=== PATIENT | female | born 1950 | race American Indian/Alaskan Native ===

== ENCOUNTER 2017-10-08 09:19 | Emergency (ER) | payer OTHER ==
[2017-10-08 09:26] VITALS: BP 139/74; PULSE 85; RESP 20; TEMP 97.4; O2SAT 98; BMI 35.4
--- NOTE | 2017-10-08 09:46 | ED PDOC ---
Lower Extremity Pain/Injury Time Seen by Provider: 10/08/17 09:25 Chief Complaint (Nursing): Lower Extremity Problem/Injury Chief Complaint (Provider): Right knee pain History Per: Patient History/Exam Limitations: no limitations Onset/Duration Of Symptoms: Days (10/08/17) Current Symptoms Are (Timing): Still Present Additional Complaint(s): 66 year old female with no past medical history presents to the ED complaining of right knee pain onset today morning. Reports while going to [employer], she tripped and fell. Denies head injury, loss of consciousness, dizziness, or any other injury in ED. PMD: No Family Provider - Knee Description Of Injury: Fell Past Medical History Reviewed: Historical Data, Nursing Documentation, Vital Signs Vital Signs: Last Vital Signs Temp 97.4 F L 10/08/17 09:25 Pulse 85 10/08/17 09:25 Resp 20 10/08/17 09:25 BP 139/74 10/08/17 09:25 Pulse Ox 98 10/08/17 09:25 - Medical History PMH: No Chronic Diseases - Family History Family History: States: Unknown Family Hx - Immunization History Hx Tetanus Toxoid Vaccination: No Hx Influenza Vaccination: No Hx Pneumococcal Vaccination: No - Home Medications Home Medications: Ambulatory Orders Medication Instructions Recorded Prednisone [Deltasone] 20 mg PO DAILY #3 tablet 05/15/17 traMADol [Ultram] 50 mg PO TID #7 tab 05/15/17 Naproxen [Naprosyn] 500 mg PO Q12H #20 tab 10/08/17 - Allergies Allergies/Adverse Reactions: Allergies Allergy/AdvReac Type Severity Reaction Status Date / Time No Known Allergies Allergy Verified 10/08/17 09:23 Review of Systems ROS Statement: Except As Marked, All Systems Reviewed And Found Negative Musculoskeletal: Positive for: Other (right knee pain) Neurological: Negative for: Dizziness, Other (head injury; LOC) Physical Exam - Reviewed Nursing Documentation Reviewed: Yes Vital Signs Reviewed: Yes - Physical Exam Appears: Positive for: Non-toxic, No Acute Distress Head Exam: Positive for: ATRAUMATIC, NORMAL INSPECTION, NORMOCEPHALIC Skin: Positive for: Normal Color, Warm, Dry Extremity: Positive for: Normal ROM (full ROM; normal patellar), Other (old abrasion). Negative for: Tenderness, Swelling Neurologic/Psych: Positive for: Alert (awake), Oriented (x3). Negative for: Motor/Sensory Deficits - ECG O2 Sat by Pulse Oximetry: 98 (RA) Pulse Ox Interpretation: Normal Medical Decision Making Medical Decision Making: Time: 938 Initial Plan: --Knee 3 views RT [RAD] --Reevaluation Scribe Attestation: Documented by Loretta Bains, acting as a scribe for Tay Carlson MD Provider Scribe Attestation: All medical record entries made by the Scribe were at my direction and personally dictated by me. I have reviewed the chart and agree that the record accurately reflects my personal performance of the history, physical exam, medical decision making, and the department course for this patient. I have also personally directed, reviewed, and agree with the discharge instructions and disposition. Disposition - Clinical Impression Clinical Impression: Knee sprain - Patient ED Disposition Is Patient to be Admitted: No Counseled Patient/Family Regarding: Studies Performed, Diagnosis, Need For Followup, Rx Given - Disposition Referrals: [facility] [Outside] Disposition: Routine/Home Disposition Time: 10:00 Condition: FAIR Prescriptions: Naproxen [Naprosyn] 500 mg PO Q12H #20 tab Instructions: Knee Sprain (DC) Forms: [employer] ([place])
--- NOTE | 2017-10-09 19:52 | RAD ---
PROCEDURE: Right Knee Radiographs. HISTORY: trauma COMPARISON: None. FINDINGS: BONES: Bone alignment is normal. No acute displaced fracture.There is diffuse bone demineralization. JOINTS: There is mild tricompartmental degenerative osteoarthrosis, worse in the medial compartment with reduced joint spaces, marginal osteophytes and tibial spiking. JOINT EFFUSION: There is a small suprapatellar joint effusion. OTHER FINDINGS: None. IMPRESSION: No acute fracture or dislocation. Mild tricompartmental degenerative osteoarthrosis, worse in the medial compartment.
== END 2017-10-08 10:15 | disposition home or self-care (01) ==
LOC: H.ER 09:19
DX: S83.91XA Sprain of unspecified site of right knee, initial encounter (principal); W19.XXXA Unspecified fall, initial encounter

== ENCOUNTER 2017-11-07 10:24 | Emergency (ER) | payer OTHER ==
[2017-11-07 10:24] VITALS: BMI 35.4
[2017-11-07 10:31] VITALS: RESP 20; TEMP 97.5
--- NOTE | 2017-11-07 11:34 | ED PDOC ---
HPI: General Adult Time Seen by Provider: 11/07/17 10:43 Chief Complaint (Nursing): Abnormal Skin Integrity Chief Complaint (Provider): headache History Per: Patient History/Exam Limitations: no limitations Onset/Duration Of Symptoms: Days (x1 week) Current Symptoms Are (Timing): Still Present Recently: Seen In ED Additional Complaint(s): Leatha Laguna is a 66 year old female, with no significant past medical history, who presents to the emergency department complaining of headache and feeling itchy all over her body onset for x1 week. Patient reports she was recently seen at [facility] and given Caldyphen but with no relief. Patient is non domicile and is currently staying at the longterm. She denies any fever, chills or other medical complaints. PMD: None provided. Past Medical History Reviewed: Historical Data, Nursing Documentation, Vital Signs Vital Signs: Last Vital Signs Temp 97.5 F L 11/07/17 10:31 Pulse 110 H 11/07/17 10:31 Resp 20 11/07/17 10:31 BP 104/60 11/07/17 10:31 Pulse Ox 96 11/07/17 11:41 - Medical History PMH: No Chronic Diseases - Surgical History Surgical History: No Surg Hx - Family History Family History: States: Unknown Family Hx - Immunization History Hx Tetanus Toxoid Vaccination: No Hx Influenza Vaccination: No Hx Pneumococcal Vaccination: No - Home Medications Home Medications: Ambulatory Orders Medication Instructions Recorded Prednisone [Deltasone] 20 mg PO DAILY #3 tablet 05/15/17 traMADol [Ultram] 50 mg PO TID #7 tab 05/15/17 Naproxen [Naprosyn] 500 mg PO Q12H #20 tab 10/08/17 Ibuprofen [Motrin] 600 mg PO Q6H PRN #20 tab 11/07/17 Permethrin [Elimite] 60 gm TP DAILY #1 cream..g. 11/07/17 - Allergies Allergies/Adverse Reactions: Allergies Allergy/AdvReac Type Severity Reaction Status Date / Time No Known Allergies Allergy Verified 10/08/17 09:23 Review of Systems ROS Statement: Except As Marked, All Systems Reviewed And Found Negative Constitutional: Negative for: Fever, Chills Skin: Positive for: Other (itchiness all over body) Neurological: Positive for: Headache Physical Exam - Reviewed Nursing Documentation Reviewed: Yes Vital Signs Reviewed: Yes - Physical Exam Appears: Positive for: Non-toxic, No Acute Distress Head Exam: Positive for: ATRAUMATIC, NORMOCEPHALIC Skin: Positive for: Normal Color, Warm, Dry. Negative for: Rash Eye Exam: Positive for: Normal appearance, EOMI. Negative for: PERRL (Right cornea cloudy, consistent with glaucoma. Left reactive) Neck: Positive for: Painless ROM Cardiovascular/Chest: Positive for: Regular Rate, Rhythm. Negative for: Murmur Respiratory: Positive for: Normal Breath Sounds. Negative for: Respiratory Distress Back: Positive for: Other (scratch ren on chest & back ) Extremity: Positive for: Normal ROM (upper and lower extremities). Negative for : Deformity, Swelling Neurologic/Psych: Positive for: Alert, Oriented - ECG O2 Sat by Pulse Oximetry: 96 (RA) Pulse Ox Interpretation: Normal Medical Decision Making Medical Decision Making: Initial Impression: headache Initial Plan: --Head w/o contrast [CT] --reevaluation 12:[address] FINDINGS: HEMORRHAGE: No intracranial hemorrhage. BRAIN: No mass effect or edema. Cortical atrophy, periventricular small vessel disease. VENTRICLES: Unremarkable. No hydrocephalus. CALVARIUM: Unremarkable. PARANASAL SINUSES: Unremarkable as visualized. No significant inflammatory changes. MASTOID AIR CELLS: Unremarkable as visualized. No inflammatory changes. OTHER FINDINGS: None. IMPRESSION: No acute intracranial abnormalities. No significant findings to account for the clinical presentation. 13:00 -Repeat heart rate: 80bpm Scribe Attestation: Documented by Thompson Rodriguez, acting as a scribe for Suzan Alvarez MD Provider Scribe Attestation: All medical record entries made by the Scribe were at my direction and personally dictated by me. I have reviewed the chart and agree that the record accurately reflects my personal performance of the history, physical exam, medical decision making, and the department course for this patient. I have also personally directed, reviewed, and agree with the discharge instructions and disposition. Disposition - Clinical Impression Clinical Impression: Headache, Scabies - Disposition Referrals: [facility] [Outside] Prescriptions: Ibuprofen [Motrin] 600 mg PO Q6H PRN #20 tab PRN Reason: Pain, Moderate (4-7) Permethrin [Elimite] 60 gm TP DAILY #1 cream..g. Instructions: Scabies, Headache, Adult Forms: [facility] ([employer])
--- NOTE | 2017-11-07 12:16 | CT ---
PROCEDURE: CT HEAD WITHOUT CONTRAST. HISTORY: JULIAN COMPARISON: None available. TECHNIQUE: Axial computed tomography images were obtained through the head/brain without intravenous contrast. Radiation dose: Total exam DLP = 843.29 mGy-cm. This CT exam was performed using one or more of the following dose reduction techniques: Automated exposure control, adjustment of the mA and/or kV according to patient size, and/or use of iterative reconstruction technique. FINDINGS: HEMORRHAGE: No intracranial hemorrhage. BRAIN: No mass effect or edema. Cortical atrophy, periventricular small vessel disease. VENTRICLES: Unremarkable. No hydrocephalus. CALVARIUM: Unremarkable. PARANASAL SINUSES: Unremarkable as visualized. No significant inflammatory changes. MASTOID AIR CELLS: Unremarkable as visualized. No inflammatory changes. OTHER FINDINGS: None. IMPRESSION: No acute intracranial abnormalities. No significant findings to account for the clinical presentation.
[2017-11-07 14:22] VITALS: BP 118/74; PULSE 88; O2SAT 97
== END 2017-11-07 14:21 | disposition home or self-care (01) ==
LOC: H.ER 10:24
DX: B86 Scabies (principal); R51 Headache